=== PATIENT | male | born 1985 | race Caucasian/White ===

== ENCOUNTER 2020-01-09 17:01 | Emergency (ER) | payer MEDICAID ==
[~2020-01-09] VITALS: Ht 170.2 cm; Wt 83.0 kg
[2020-01-09 17:10] VITALS: BP 120/79
--- NOTE | 2020-01-09 17:16 | NUR ---
C/O PAINFUL RED BUMPS TO BILAT BUTTOCKS X4 DAYS. MULTIPLE SINGLE RAISED BUMPS NOTED. PT STATES THEY DO NOT ITCH BUT THEY ARE PAINFUL 7/10. DENIES INJECTING ANY MEDICATION/DRUGS. BED IN LOW POSITION, SIDE RAIL UP X1.
--- NOTE | 2020-01-09 17:40 | NUR ---
DR. MAHAN AT BEDSIDE
[2020-01-09 18:22] VITALS: BP 120/79
--- NOTE | 2020-01-09 18:24 | NUR ---
Patient discharged with v/s stable. Written and verbal after care instructions given and explained. Patient alert, oriented and verbalized understanding of instructions. Ambulatory with steady gait. All questions addressed prior to discharge. ID band removed. Patient advised to follow up with PMD. Rx of BACTRIM, KEFLEX, MOTRIN given. Patient educated on indication of medication including possible reaction and side effects. Opportunity to ask questions provided and answered.
== END 2020-01-09 18:24 | disposition home or self-care (01) ==
LOC: MED 17:01
DX: M79.10 Myalgia, unspecified site (principal)
CPT/HCPCS: 99283

== ENCOUNTER 2020-05-12 11:46 | Emergency (ER) | payer MEDICAID ==
[~2020-05-12] VITALS: Ht 170.2 cm; Wt 77.1 kg
[2020-05-12 11:51] VITALS: BP 132/77
--- NOTE | 2020-05-12 11:51 | NUR ---
CHEST PAIN X 4 DAYS. RIGHT UPPER CHEST AREA, RADIATING TO THE RIGHT SCAPULA, SHARP SENSATION, 6/10 PAIN, BREATHING EXACERBATES THE PAIN, RESTING ALLEVIATES. DENIES TRAUMA,INJURIES. NKA. HX NO. RX NO. DENIES NVD. PT PRESENTS VSS,EUPNIC,AMBULATORY,A/OX4. SIDE RAIL X1.
--- NOTE | 2020-05-12 12:36 | NUR ---
RAD AT BEDSIDE
--- NOTE | 2020-05-12 12:59 | NUR ---
PT RESTING IN BED, SIDE RAIL X1
[2020-05-12 13:18] VITALS: BP 128/72
== END 2020-05-12 13:19 | disposition home or self-care (01) ==
LOC: MED 11:46
DX: R07.9 Chest pain, unspecified (principal); F17.200 Nicotine dependence, unspecified, uncomplicated
CPT/HCPCS: 71045; 93005; 99283; Q0092

== ENCOUNTER 2021-02-23 21:57 | Emergency (ER) | payer MEDICAID ==
[~2021-02-23] VITALS: Ht 170.2 cm; Wt 74.8 kg
[2021-02-23 22:21] VITALS: BP 134/86
[2021-02-23 22:49] LABS: BASOPHILS # (AUTO) 0.1 K/uL (0.00-0.22); BASOPHILS % (AUTO) 0.7 % (0.0-2.0); EOSINOPHILS # (AUTO) 0.1 K/uL (0-0.4); EOSINOPHILS % (AUTO) 0.7 % (0.0-4.0); HEMATOCRIT 45.2 % (36-52); HEMOGLOBIN 14.9 g/dL (12.0-18.0); LYMPHOCYTES # (AUTO) 1.9 K/uL (2.0-11.5); LYMPHOCYTES % (AUTO) 20.1 % (20.5-51.1); MEAN CORPUSCULAR HEMOGLOBIN 29 pg (27-31); MEAN CORPUSCULAR HGB CONC 33 g/dL (33-37); MEAN CORPUSCULAR VOLUME 87.5 fL (80-94); MONOCYTES # (AUTO) 0.7 K/uL (0.8-1.0); MONOCYTES % (AUTO) 7.4 % (1.7-9.3); NEUTROPHILS # (AUTO) 6.8 K/uL (1.8-7.7); NEUTROPHILS % (AUTO) 71.1 % (42.2-75.2); PLATELET COUNT (AUTO) 281 K/uL (140-450); RED BLOOD CELL COUNT(AUTO) 5.17 MIL/uL (4.20-6.10); RED CELL DISTRIBUTION WIDTH 13.5 % (11.6-13.7); WHITE BLOOD COUNT (AUTO) 9.5 K/uL (4.8-10.8)
[2021-02-23 22:57] LABS: ANION GAP 15.8 (8-16); CARBON DIOXIDE 26.8 mmol/L (21-32); CREATININE 0.9 mg/dL (0.6-1.3); POTASSIUM 3.6 mmol/L (3.5-5.1)
[2021-02-23] MEDS ORDERED: ASPIRIN 81 MG TAB.CHEW PO ONE (23:15)
== END 2021-02-23 23:36 | disposition home or self-care (01) ==
LOC: MED 21:57
DX: R07.89 Other chest pain (principal); F15.10 Other stimulant abuse, uncomplicated
CPT/HCPCS: 36415; 71045; 80048; 84484; 85025; 93005; 99285